=== PATIENT | female | born 1945 | race Caucasian/White ===

== ENCOUNTER 2017-03-12 07:16 | Day surgery (SDC) | payer MEDICARE ==
--- NOTE | ~2017-03-12 | EGD ---
EGD REPORT [facility] [address] [id number] NAME: HEAVEN DUNN : 41 STATUS : REG [facility]#: [id number] AGE: 71 ADM/REG DATE : 03/12/17 MR#: [id number] REPORT SERV DATE: 03/12/17 DICTATED BY: DATE: REPORT STATUS : Draft TRANSCRIBED BY: [employer] DATE: 03/12/17 [facility] Patient Name: Heaven Dunn Date of : 1945 Attending MD: EDIS FISHER MD Procedure Date No Time: 03/12/2017 Procedure: Colonoscopy Indications: Clinically significant diarrhea of unexplained origin Referring MD: LOLI TILLMAN MD Medicines: Monitored Anesthesia Care Complications: No immediate complications. Procedure: Pre-Anesthesia Assessment: - ASA Grade Assessment: III - A patient with severe systemic disease. After I obtained informed consent, the scope was passed under direct vision. Throughout the procedure, the patient's blood pressure, pulse, and oxygen saturations were monitored continuously. The PCF H190L [id number] was introduced through the anus and advanced to the cecum, identified by appendiceal orifice and ileocecal valve. The colonoscopy was performed without difficulty. The patient tolerated the procedure well. The quality of the bowel preparation was excellent. Findings: The perianal and digital rectal examinations were normal. There was evidence of a prior end-to-side colo-colonic anastomosis at 10 cm proximal to the anus. This was patent. This was characterized by healthy appearing mucosa. A few small and large-mouthed diverticula were found in the entire colon. No other significant abnormalities were identified in a careful examination of the remainder of the colon. There is no endoscopic evidence of mass, polyps or ulcerations in the entire colon. No additional abnormalities were found on retroflexion. Impression: - Patent end-to-side colo-colonic anastomosis. - Diverticulosis in the entire examined colon. Recommendation: - Patient has a contact number available for emergencies. The signs and symptoms of potential delayed complications were discussed with the patient. Return to normal activities tomorrow. Written discharge instructions were provided to the patient. - High fiber diet. EGD REPORT [address] [address] NAME: HEAVEN DUNN : 41 STATUS : [place] [facility] [place]#: [id number] AGE: 71 ADM/REG DATE : 03/12/17 MR#: [id number] REPORT SERV DATE: 03/12/17 DICTATED BY: DATE: REPORT STATUS : Draft TRANSCRIBED BY: [employer] DATE: 03/12/17 - Discharge patient to home. - Continue present medications. - Await pathology results. - Repeat colonoscopy in 10 years for screening purposes. - Pepto Bismol 2 tabs or 2 TBSP by mouth 4 times day for 2 weeks then stop. Procedure Code(s): --- Professional --- 40982, Colonoscopy, flexible, proximal to splenic flexure; diagnostic, with or without collection of specimen(s) by brushing or washing, with or without colon decompression (separate procedure) Diagnosis Code(s): --- Professional --- Z98.0, Intestinal bypass and anastomosis status K57.30, Diverticulosis of large intestine without perforation or abscess without bleeding R19.7, Diarrhea, unspecified CPT copyright 2013 [employer]. All rights reserved. The codes documented in this report are preliminary and upon heel scorer review may be revised to meet current compliance requirements. EDIS FISHER MD 03/12/2017 8:57 AM This report has been signed electronically. Number of Addenda: 0 Note Initiated On: 03/12/2017 8:34 AM Scope Withdrawal Time 0 hours 5 minutes 28 seconds [address] [id number]
--- NOTE | ~2017-03-12 | EGD ---
EGD REPORT [facility] [address] [id number] NAME: HEAVEN DUNN : 41 STATUS : REG [facility]#: [id number] AGE: 71 ADM/REG DATE : 03/12/17 MR#: [id number] REPORT SERV DATE: 03/12/17 DICTATED BY: DATE: REPORT STATUS : Draft TRANSCRIBED BY: [employer] DATE: 03/12/17 [facility] Patient Name: Heaven Dunn Date of : 1945 Attending MD: EDIS FISHER MD Procedure Date No Time: 03/12/2017 Procedure: Colonoscopy Indications: Clinically significant diarrhea of unexplained origin Referring MD: LOLI TILLMAN MD Medicines: Monitored Anesthesia Care Complications: No immediate complications. Procedure: Pre-Anesthesia Assessment: - ASA Grade Assessment: III - A patient with severe systemic disease. After I obtained informed consent, the scope was passed under direct vision. Throughout the procedure, the patient's blood pressure, pulse, and oxygen saturations were monitored continuously. The PCF H190L [id number] was introduced through the anus and advanced to the cecum, identified by appendiceal orifice and ileocecal valve. The colonoscopy was performed without difficulty. The patient tolerated the procedure well. The quality of the bowel preparation was excellent. Findings: The perianal and digital rectal examinations were normal. There was evidence of a prior end-to-side colo-colonic anastomosis at 10 cm proximal to the anus. This was patent. This was characterized by healthy appearing mucosa. A few small and large-mouthed diverticula were found in the entire colon. No other significant abnormalities were identified in a careful examination of the remainder of the colon. There is no endoscopic evidence of mass, polyps or ulcerations in the entire colon. No additional abnormalities were found on retroflexion. Impression: - Patent end-to-side colo-colonic anastomosis. - Diverticulosis in the entire examined colon. Recommendation: - Patient has a contact number available for emergencies. The signs and symptoms of potential delayed complications were discussed with the patient. Return to normal activities tomorrow. Written discharge instructions were provided to the patient. - High fiber diet. EGD REPORT [address] [address] NAME: HEAVEN DUNN : 41 [place] [facility] [place] [id number] AGE: 71 ADM/REG DATE : 03/12/17 MR#: [id number] REPORT SERV DATE: 03/12/17 DICTATED BY: DATE: REPORT STATUS : Draft TRANSCRIBED BY: [employer] DATE: 03/12/17 - Discharge patient to home. - Continue present medications. - Await pathology results. - Repeat colonoscopy in 10 years for screening purposes. - Pepto Bismol 2 tabs or 2 TBSP by mouth 4 times day for 2 weeks then stop. Procedure Code(s): --- Professional --- 15983, Colonoscopy, flexible, proximal to splenic flexure; diagnostic, with or without collection of specimen(s) by brushing or washing, with or without colon decompression (separate procedure) Diagnosis Code(s): --- Professional --- Z98.0, Intestinal bypass and anastomosis status K57.30, Diverticulosis of large intestine without perforation or abscess without bleeding R19.7, Diarrhea, unspecified CPT copyright 2013 [employer]. All rights reserved. The codes documented in this report are preliminary and upon wood grinder operator review may be revised to meet current compliance requirements. EDIS FISHER MD 03/12/2017 8:57 AM This report has been signed electronically. Number of Addenda: 0 Note Initiated On: 03/12/2017 8:34 AM Scope Withdrawal Time 0 hours 5 minutes 28 seconds [address] [id number]
[~2017-03-12 07:16] MED LIST: ALEVE220 MG PO; ALTACE10 MG PO; BIOTIN5 MG PO; CO Q-10100 MG PO; CO-Q-10 PO; EFFEXOR XR150 MG PO; ELIQUIS 5 MG TAB5 MG PO; HUMALOG SC; LANTUS SC; MAGOX4 PO; MOBIC7.5 PO; MULTIPLE VIT PO; MYRBETRIQ25 MG PO; NORV5 PO; NOVOLOG SC; NOVOPEN SC; PRILO PO; RELA5 PO; SPIRO50 PO; VESICARE10 MG PO; VESICARE5 PO; VIT D3; VYTORIN 10/40 T1 TAB PO; ZOL100 PO; [UNRECOGNIZED DRUG - OTHER] PO
== END 2017-03-12 23:59 | disposition home or self-care (01) ==
LOC: DMU 07:16
PROVIDERS: Internal Medicine Gastroenterology
PROC: 0DBE8ZX Excision of Large Intestine, Via Natural or Artificial Opening Endoscopic, Diagnostic (ICD-10-PCS; principal; 2017-03-12 08:30)
DX: R19.7 Diarrhea, unspecified (principal); K57.30 Diverticulosis of large intestine without perforation or abscess without bleeding; E78.00 Pure hypercholesterolemia, unspecified; G47.33 Obstructive sleep apnea (adult) (pediatric); K21.9 Gastro-esophageal reflux disease without esophagitis; E66.9 Obesity, unspecified; E66.01 Morbid (severe) obesity due to excess calories; I10 Essential (primary) hypertension; Z98.0 Intestinal bypass and anastomosis status; Z95.0 Presence of cardiac pacemaker; Z99.89 Dependence on other enabling machines and devices; Z88.5 Allergy status to narcotic agent; Z79.4 Long term (current) use of insulin; Z79.899 Other long term (current) drug therapy; Z90.710 Acquired absence of both cervix and uterus; Z98.890 Other specified postprocedural states; Z90.49 Acquired absence of other specified parts of digestive tract
CPT/HCPCS: 82962; 88305